=== PATIENT | female | born 1990 ===

== ENCOUNTER 2020-07-02 12:02 | Outpatient (REF) | payer MEDICAID, SELFPAY | END 2020-07-02 12:03 | disposition home or self-care (01) | LOC: HO.LAB 12:02 | PROVIDERS: Visit Provider Internal Medicine | DX: Z20.828 Contact with and (suspected) exposure to other viral communicable diseases (principal) | CPT/HCPCS: C9803; U0003 ==

== ENCOUNTER 2020-11-26 12:04 | Outpatient (REF) | payer MEDICAID, SELFPAY ==
[2020-11-26 12:47] LABS: COVID-19 Test Negative (Negative); IDNOW Serial# 55D5AD1C
== END 2020-11-26 12:05 | disposition home or self-care (01) ==
LOC: HO.LAB 12:04
PROVIDERS: Visit Provider Internal Medicine
DX: Z20.822 Contact with and (suspected) exposure to COVID-19 (principal)
CPT/HCPCS: 36415; 87635; C9803

== ENCOUNTER 2023-05-09 08:50 | Emergency (ER) | payer MEDICAID, SELFPAY ==
[2023-05-09 09:01] VITALS: BP 116/83; PULSE 70; RESP 16; TEMP 36.1; O2SAT 98; BMI 31.1
[2023-05-09 09:30] LABS: MANUAL DIFF FLAG NO
[2023-05-09 09:32] LABS: Basophils Absolute Auto 0.1 X10*3/uL (0.0-0.2); Basophils Percent Auto 0.6 % (0-2); Eosinophils Absolute Auto 0.1 X10*3/uL (0.0-0.4); Eosinophils Percent Auto 1.2 % (0-4); Hematocrit 42.4 % (37.0-47.0); Hemoglobin 14.5 g/dl (12.0-16.0); Imm Gran Abs Auto 0.07 X10*3/uL (0.00-0.03); Imm Gran Pct Auto 0.7 % (0.0-0.4); Lymphocytes Absolute Auto 3.3 X10*3/uL (1.2-4.9); Lymphocytes Percent Auto 33.7 % (20-40); Mean Corpuscular HGB Conc 34.2 g/dl (31.0-35.0); Mean Corpuscular Hemoglobin 30.7 pg (27.0-33.0); Mean Corpuscular Volume 89.6 fL (80.0-98.0); Mean Platelet Volume 8.8 fL (9.4-12.3); Monocytes Absolute Auto 0.6 X10*3/uL (0.1-1.2); Monocytes Percent Auto 5.9 % (2-11); Neutrophils Absolute Auto 5.6 x10*3/uL (2.0-8.3); Neutrophils Percent Auto 57.9 % (45-73); Platelet Count 353 X10*3/uL (160-400); Red Blood Count 4.73 X10*6/uL (4.20-5.50); Red Cell Distribution Width 12.1 % (11.0-16.0); White Blood Count 9.7 X10*3/uL (4.8-10.8)
[2023-05-09 09:35] LABS: Appearance Urine Clear; Color Urine Yellow; Glucose Urine UA Negative (Negative); Leukocyte Esterase Urine Negative (Negative); Nitrite Urine Negative (Negative); PH 5.5 (5.0-9.0); Specific Gravity - Urine <= 1.005 (1.005-1.025); UMIC TRIGGER UACC YES; Urine Blood Trace (Negative); Urine Ketones Negative (Negative); Urine Protein Negative (Neg-Trace)
[2023-05-09 09:37] LABS: Bacteria Urine None Seen (None Seen); Hyaline Casts Urine 0-2 /LPF (0-2); RBC Urine 0-2 /HPF (0-2); Squamous Epithelial Cell Urine 0-2 /HPF (0-2); WBC Urine 0-5 /HPF (0-5)
[2023-05-09 09:38] LABS: UPreg QC Valid YES; Urine Pregnancy NEGATIVE (NEGATIVE)
[2023-05-09 09:57] LABS: Anion Gap 14 (12-20); Blood Urea Nitrogen 16 mg/dL (9-16); Calcium 9.5 mg/dL (8.4-10.2); Carbon Dioxide 20 mmol/L (22-29); Chloride 108 mmol/L (96-108); Creatinine Clr Calc Pharmacy 104.9; Estimated Glomerular Filt Rate > 60; Glucose Random 90 mg/dL (60-115); Potassium 4.1 mmol/L (3.3-5.1); Sodium 138 mmol/L (135-145)
[2023-05-09 13:44] VITALS: BP 138/77; PULSE 88; RESP 18; TEMP 36.3; O2SAT 97
--- NOTE | 2023-05-09 13:44 | ED_ITS ---
HPI - General Adult General Chief complaint: Nausea/Vomiting/Diarrhea Stated complaint: heartburn vomiting diarrhea abd pain Time Seen by Provider: 05/09/23 13:45 Source: patient Mode of arrival: ambulatory Limitations: no limitations History of Present Illness HPI narrative: Patient is a 32 year old assigned female at with no reported medical history presenting to the emergency department today with nausea, vomiting, and acid reflux. Patient states that over the last few months they have intermittent nausea, vomiting, and acid reflux. Patient denies any dizziness, lightheadedness, abdominal pain, fever, chills, blurry vision, double vision, loss of vision, chest pain, difficulty breathing, shortness of breath, back pain, night sweats, pain with urination, increased urinary frequency, increased urinary urgency, blood in her urine or stool, syncope or a near syncopal episode, recent trauma or falls, bowel incontinence, bladder incontinence, bowel retention, bladder retention, or any other complaints at this time. Onset (ago): month(s) Severity: mild Severity scale (1-10): 3 Pain Consistency: constant Relieving factors: none Exacerbating factors: none Associated symptoms: nausea/vomiting Treatments prior to arrival: none Related Data Previous Rx's Medication Instructions Recorded omeprazole 40 mg capsule,delayed 40 mg PO DAILY #30 caps 05/09/23 release ondansetron 4 mg disintegrating 4 mg PO Q8H 3 days #9 tabs 05/09/23 tablet Allergies Allergy/AdvReac Type Severity Reaction Status Date / Time doxycycline AdvReac Vomiting Verified 05/09/23 09:01 Sulfa (Sulfonamide AdvReac Diarrhea Verified 05/09/23 09:01 Antibiotics) Review of Systems 2 Constitutional: Constitutional: Reports no additional constitutional complaints, Denies chills, Denies fever(s) and Denies night sweats Eyes: Eyes: Reports no additional eye complaints, Denies blurry vision, Denies change in vision, Denies diplopia, Denies eye discharge, Denies loss of vision and Denies eye pain ENT: Denies dizziness Cardiovascular: Cardiovascular: Reports no additional cardiovascular complaints, Denies chest pain, Denies lightheadedness, Denies Loss of Consciousness and Denies dyspnea Respiratory: Respiratory: Reports no additional respiratory complaints and Denies dyspnea Gastrointestinal: Gastrointestinal: Reports no additional gastrointestinal complaints, Denies abdominal pain, Denies melena, Denies hematochezia, Denies change in bowel habits, Denies change in stool character, Reports nausea and Reports vomiting Genitourinary: Genitourinary: Denies hematuria, Denies urinary frequency, Denies dysuria, Denies urinary incontinence, Denies urinary hesitancy and Denies urinary urgency Musculoskeletal: Musculoskeletal: Reports no additional musculoskeletal complaints, Denies numbness and Denies tingling Neurologic: Denies dizziness, Denies loss of vision, Denies numbness and Denies tingling Psychiatric: Psychiatric: Reports no additional psychiatric complaints Endocrine: Endocrine: Reports no additional endocrine complaints Hematologic/Lymphatic: Hematologic/Lymphatic: Reports no additional hematologic/lymphatic complaints Allergic/Immunologic: Allergic/Immunologic: Reports no additional allergic/immunologic complaints [facility] Past Medical History Attestation statement: The following information was validated with the patient. Source: old records reviewed and nursing notes reviewed Physical Exam ED Vital Signs: Vital Signs - 24 hr 05/09/23 09:01 05/09/23 13:44 Temperature 97 F 97.4 F Pulse Rate 70 88 Respiratory Rate 16 18 Blood Pressure 116/83 138/77 Pulse Oximetry 98 97 Oxygen Delivery Method Room Air Room Air BMI result Body Mass Index 31.1 Const General: cooperative, no acute distress, alert and awake Nutritional Appearance: well nourished Orientation/consciousness: patient oriented x3 Limitations: no limitations HENMD Head: Yes normal to inspection and Yes atraumatic Ears: hearing grossly normal bilaterally and external ears normal General nose exam: Normal external nose present, no nasal discharge noted and no epistaxis Face and sinus: Yes normal facial exam, No abrasion and No laceration Mouth: Normal oral and palatal mucosa present, no drooling and no muffled voice Eyes General: appearance normal, both eyes and all related structures Periorbital: periorbital findings normal Eyelids: Yes eyelids normal Conjunctivae: conjunctivae normal Pupils: Equal, round and reactive pupils present EOM: EOMs intact bilaterally Neck Neck: Yes normal visual inspection, Yes full ROM and Yes no lymphadenopathy Chest Chest palpation & inspection: normal inspection of the chest Resp Effort & Inspection: normal respiratory effort and able to speak in complete sentences Auscultation: clear to auscultation bilaterally Cardio Rate: regular rate Rhythm: regular rhythm GI Inspection: Yes normal to inspection Palpation (GI): Soft to palpation, not firm, nontender and no guarding Neuro General: patient oriented x3 and moves all extremities Cranial nerves: Yes Equal, round and reactive pupils present Cognition (Neuro): normal cognition Motor exam (neuro): 5/5 motor strength present throughout Sensory Exam: Normal double simultaneous stimulation for sensation Coordination: [id number] test normal Extrem General: Yes normal to inspection, Yes full ROM and Yes capillary refill normal Psych Appearance: grossly normal Mental Status: mental status grossly normal Affect: normal affect Attitude: cooperative Thought process: Normal thought process present Thought content: Normal thought content present Insight: Good insight present (Psych) Course Course Course Narrative: RME performed by Kiley Maya PA-C. Patient is a 32 year old assigned female at presenting to the emergency department with vomiting and diarrhea. Labs and swabs ordered. Patient placed back in the waiting room pending room availability and results. Medical Decision Making Medical Decision Making [facility] Narrative: Patient is a 32 year old assigned female at with no reported medical history presenting to the emergency department today with nausea, vomiting, and heartburn for a few months. Patient's physical exam was unremarkable. Patient's blood work was unremarkable. Patient's urine showed no acute process. I explained my physical exam findings as well as all test results to the patient. I answered all questions asked by the patient. I stressed the importance of the patient taking her medication as prescribed. I stressed the importance of the patient following up with her primary care provider and a GI specialist. I stressed the importance of the patient returning to the emergency department immediately if her symptoms were to worsen or if she were to develop any dizziness, shortness of breath, difficulty breathing, chest pain, blurry vision, loss of vision, nausea, vomiting, abdominal pain, fever, chills, back pain, or any other complaints. Patient verbalized agreement and understanding with this treatment plan and discharge. Differential Diagnosis Differential Diagnoses: The differential diagnosis associated with the presentation includes GERD Nausea Vomiting Admission/Observation Consideration of admission/observation: Escalation of care including admission/observation considered Patient would have been admitted to the hospital had her work up had any findings where hospital admission was appropriate and her clinical presentation warranted hospital admission. Lab Data [facility] Lab Attestation statement: I reviewed the patient's lab results. My interpretation of these studies and their corresponding values is that they are grossly normal. 05/09/23 09:22 05/09/23 09:22 Labs: Lab Results 05/09/23 Range/Units 09:22 WBC 9.7 (4.8-10.8) X10*3/uL RBC 4.73 (4.20-5.50) X10*6/uL Hgb 14.5 (12.0-16.0) g/dl Hct 42.4 (37.0-47.0) % MCV 89.6 (80.0-98.0) fL MCH 30.7 (27.0-33.0) pg MCHC 34.2 (31.0-35.0) g/dl RDW 12.1 (11.0-16.0) % Plt Count 353 (160-400) X10*3/uL MPV 8.8 L (9.4-12.3) fL Immature Gran % (Auto) 0.7 H (0.0-0.4) % Neut % (Auto) 57.9 (45-73) % Lymph % (Auto) 33.7 (20-40) % [place] % (Auto) 5.9 (2-11) % Eos % (Auto) 1.2 (0-4) % Baso % (Auto) 0.6 (0-2) % Lymph # (Auto) 3.3 (1.2-4.9) X10*3/uL [place] # (Auto) 0.6 (0.1-1.2) X10*3/uL Eos # (Auto) 0.1 (0.0-0.4) X10*3/uL Baso # (Auto) 0.1 (0.0-0.2) X10*3/uL Abs Immat Gran (auto) 0.07 H (0.00-0.03) X10*3/uL Absolute Neuts (auto) 5.6 (2.0-8.3) x10*3/uL Absolute Nucleated RBC 0.000 (0.0-0.012) X10*3/uL Nucleated RBC % (auto) 0.0 (0.0-0.2) /100WBC Sodium 138 (135-145) mmol/L Potassium 4.1 (3.3-5.1) mmol/L Chloride 108 (96-108) mmol/L Carbon Dioxide 20 L (22-29) mmol/L Anion Gap 14 (12-20) BUN 16 (9-16) mg/dL Creatinine 0.74 (0.5-1.4) mg/dL Estim Creat Clear Calc 104.9 Estimated GFR > 60 Random Glucose 90 (60-115) mg/dL Calcium 9.5 (8.4-10.2) mg/dL Urine Color Yellow Urine Appearance Clear Urine pH 5.5 (5.0-9.0) Ur Specific [place] <= 1.005 (1.005-1.025) Urine Protein Negative (Neg-Trace) mg/dL Urine Glucose (UA) Negative (Negative) mg/dL Urine Ketones Negative (Negative) mg/dL Urine Blood Trace H (Negative) Urine Nitrite Negative (Negative) Ur Leukocyte Esterase Negative (Negative) Urine RBC 0-2 (0-2) /HPF Urine WBC 0-5 (0-5) /HPF Ur Squamous Epith Cells 0-2 (0-2) /HPF Urine Bacteria None Seen (None Seen) Hyaline Casts 0-2 (0-2) /LPF Urine Test NEGATIVE (NEGATIVE) Discharge Plan Discharge Clinical Impression: Nausea & vomiting Patient Disposition: Home, Self-Care Instructions: Acute Nausea and Vomiting (ED) Additional Instructions: Follow up with your primary care provider and a GI specialist. Return to the emergency department immediately if your symptoms worsen or if you develop any dizziness, shortness of breath, difficulty breathing, chest pain, blurry vision, loss of vision, nausea, vomiting, abdominal pain, fever, chills, back pain, or any other complaints. Prescriptions: New ondansetron 4 mg tablet,disintegrating 4 mg PO Q8H 3 Days Qty: 9 0RF omeprazole 40 mg capsule,delayed release(DR/EC) 40 mg PO DAILY Qty: 30 0RF Referrals: [facility] [Provider Group] (Call to establish and follow up with a GI specialist. ) Caryn Wang NP [Primary Care Provider] - Stand Alone Forms: Work/School Release Print Language: Latvian
== END 2023-05-09 13:52 | disposition home or self-care (01) ==
PROVIDERS: Emergency Provider Emergency Medicine; PCP Nurse Practitioner Family
DX: R11.2 Nausea with vomiting, unspecified (principal); R19.7 Diarrhea, unspecified; Z79.899 Other long term (current) drug therapy
CPT/HCPCS: 36415; 80048; 81001; 81025; 85025; 99282; 99283

== ENCOUNTER 2023-08-21 10:07 | Emergency (ER) | payer MEDICAID, SELFPAY ==
--- NOTE | ~2023-08-21 | XR_ITS ---
EXAMINATION: XR WRIST, RIGHT XR HAND, RIGHT CLINICAL INFORMATION: CAT by COMPARISON: None available. TECHNIQUE: PA, lateral, and oblique views of the right wrist and PA, lateral, and oblique views of the right hand FINDINGS: RIGHT WRIST: The bones and soft tissues are normal. No fracture. Alignment is anatomic. Joint spaces are maintained. No erosions or soft tissue calcifications. RIGHT HAND: The bones and soft tissues are normal. No fracture. Alignment is anatomic. Joint spaces are maintained. No erosions or soft tissue calcifications. XR/XR hand wrist RT IMPRESSION: Normal right hand and wrist.
--- NOTE | ~2023-08-21 | XR_ITS ---
EXAMINATION: XR WRIST, LEFT XR HAND, LEFT CLINICAL INFORMATION: CAT bite COMPARISON: None available. TECHNIQUE: PA, lateral, and oblique views of the left wrist and PA, lateral, and oblique views of the left hand FINDINGS: LEFT WRIST: Small cyst in the scaphoid bone. The bones and soft tissues are otherwise normal. No fracture. Alignment is anatomic. Joint spaces are maintained. No erosions or soft tissue calcifications. LEFT HAND: The bones and soft tissues are normal. No fracture. Alignment is anatomic. Joint spaces are maintained. No erosions or soft tissue calcifications. XR/XR hand wrist LT IMPRESSION: Small cyst in the scaphoid bone otherwise normal left hand and wrist.
[2023-08-21 10:15] VITALS: BP 138/79; PULSE 90; RESP 18; TEMP 35.9; O2SAT 97; BMI 33.0
--- NOTE | 2023-08-21 10:23 | ED_ITS ---
HPI - Animal Bite General Chief Complaint: Animal Bite Stated Complaint: Animal bite Time Seen by Provider: 08/21/23 10:23 Source: patient and family (significant other) Mode of arrival: ambulatory Limitations: no limitations History of Present Illness HPI narrative: 32 year old female with no significant pmhx here for evaluation of right thumb pain s/p cat bite occurring 2 days ago around 1900. Admits to picking up her friends cat to move him off of the couch, when the cat bit both her right and left thumbs before dropping the cat. Reports washing the puncture wounds out immediately with water and chlorahexadine. Endorses increasing pain/ swelling to right thumb over the last two days. Denies any discharge/ bleeding from the wounds. Pain does not radiate to right wrist, forearm or elbow. She states that the cat is up to date on all vaccinations. Tetanus not UTD. Denies fever, chills, headache, dizziness, N/V, rashes, numbness/tingling/weakness of the UEs. Related Data Previous Rx's Medication Instructions Recorded omeprazole 40 mg capsule,delayed 40 mg PO DAILY #30 caps 05/09/23 release ondansetron 4 mg disintegrating 4 mg PO Q8H 3 days #9 tabs 05/09/23 tablet amoxicillin 875 mg-potassium 1 tab PO BID 14 days #28 tabs 08/21/23 clavulanate 125 mg tablet Allergies Allergy/AdvReac Type Severity Reaction Status Date / Time doxycycline AdvReac Vomiting Verified 05/09/23 09:01 Sulfa (Sulfonamide AdvReac Diarrhea Verified 05/09/23 09:01 Antibiotics) Review of Systems 2 Review of Systems: Constitutional: No fever, chills, fatigue, night sweats, weight changes ENT/Mouth: No ear pain, hearing loss, nasal congestion, sinus pain, rhinorrhea, sore throat Eyes: No eye pain, swelling, redness, vision changes, discharge Cardio: No chest pain, palpitations, JIMENEZ, orthopnea, peripheral edema Pulm: No SOB, cough, sputum, wheezing, dyspnea, hemoptysis GI: No nausea, vomiting, hematemesis, abdominal pain, diarrhea, constipation, hematochezia, melena : No irregular bleeding, dysuria, frequency, urgency, hesitancy, hematuria, flank pain, urinary flow changes, urinary incontinence or retention MSK: No back pain, neck pain, joint pain, myalgias Skin: No lesions, rashes, +cat bite Neuro: No weakness, numbness, paresthesias, LOC, dizziness, headache All other systems reviewed and are negative. [facility] Past Medical History Attestation statement: The following information was validated with the patient. Source: old records reviewed and nursing notes reviewed Social History Social History Alcohol intake: current Alcohol intake frequency: a few times a week Smoked in Last 30 Days: Yes Use of substances other than those prescribed or required for medical reasons: Yes Substance Use Type: Marijuana Substance Use Frequency: Occasionally Last Used Substance: Days (ago) Advance Directives: No Advance Directives Information Provided: No Physical Exam ED Vital Signs: Vital Signs - 24 hr 08/21/23 10:15 Temperature 96.7 F L Pulse Rate 90 Respiratory Rate 18 Blood Pressure 138/79 Pulse Oximetry 97 Oxygen Delivery Method Room Air BMI result Body Mass Index 33.0 Vital signs stable, afebrile Const General: cooperative, healthy appearing, comfortable and no acute distress Orientation/consciousness: patient oriented x3 Limitations: no limitations Eyes General: appearance normal, both eyes and all related structures Conjunctivae: conjunctivae normal Sclerae: sclerae normal Pupils: Equal, round and reactive pupils present Neck Neck: Yes normal visual inspection Resp Effort & Inspection: normal respiratory effort Auscultation: clear to auscultation bilaterally Cardio Other: + 2+ radial and ulnar pulses b/l Rate: regular rate Rhythm: regular rhythm GI Inspection: Yes normal to inspection Skin Other: + refer to photos below Neuro Other: + NV intact distally. finger to thumb and language translator strength intact b/l. sensation intact throughout. General: patient oriented x3 and gait normal Cranial nerves: Yes Equal, round and reactive pupils present Extrem Other: + refer to photos below + 2 puncture wounds noted to ulnar aspect of right 1st digit. no discharge. no streaking or pointing. TTP. full rom intact to right wrist. full ROM to all MCPs of right hand. limited ROM to 1st PIP and DIP d/t pain/ swelling. cap refill <2 seconds. no pitting edema. + 4 puncture wounds noted to left hand, 1 puncture distal to the first mcp dorsally, 1 puncture inferior to 2nd mcp dorsally, 1 puncture to palmar aspect of 1st digit inferior to DIP, and 1 to radial aspect of 2nd digit in line with mcp. no discharge. no streaking or pointing. TTP. full rom intact to left wrist. full ROM to all MCPs/ DIPs/ PIPs of left hand. cap refill <2 seconds. no pitting edema. Course Course Course Narrative: 1223-- patient has been soaking puncture wounds in iodine/saline mixture intermittently for approximately 1 hour. She reports improvement in pain/discomfort after this soak. Can now move her right thumb with less pain. X- rays are normal normal and do not demonstrate cellulitic process, evidence of osteo, fracture or FB. CBC without leukocytosis. No left shift. Chemistry shows elevated CRP likely secondary to cat bite/inflammation. Chemistry without acute electrolyte abnormality requiring intervention. No concern for progressing infection, lymphangitis, septic joint. Will send p.o. Augmentin to patient's pharmacy x14 days. Tetanus has been updated. As animal is UTD on vacciations, will not administer rabies ppx todya. Discussed all workup results, treatment and disposition with patient. All questions answered. Discussed worrisome signs and symptoms and when to return to the ED. she has remained stable throughout her stay today. Patient agreeable disposition and stable for discharge. Medications Administered Discontinued Medications Generic Name Dose Route Start Last Admin Trade Name Freq PRN Reason Stop Dose Admin Diphtheria/Tetanus/Acell Pertussis 0.5 ml 08/21/23 10:49 08/21/23 10:53 Diphth,Pertus(Acell),Tet Adult 0.5 Ml Syringe IM 08/21/23 10:50 0.5 ml .ONCE ONE Administration Medical Decision Making Medical Decision Making [facility] Narrative: 32 year old female with no significant pmhx here for evaluation of right thumb pain s/p cat bite occurring 2 days ago around 1900. Vital signs stable. Patient is nontoxic-appearing and in NAD. On exam, there are 2 puncture wounds noted to ulnar aspect of right 1st digit. 4 puncture wounds noted to left hand, 1 puncture distal to the first mcp dorsally, 1 puncture inferior to 2nd mcp dorsally, 1 puncture to palmar aspect of 1st digit inferior to DIP, and 1 to radial aspect of 2nd digit in line with mcp. no discharge. no streaking or pointing. TTP. full rom intact to right wrist. full ROM to all MCPs of right hand. limited ROM to 1st PIP and DIP d/t pain/ swelling. cap refill <2 seconds. no pitting edema. Clinical concern for animal bite. Unlikely lymphangitis, septic arthritis, sepsis, rabies, tetanus. Plan for basic labs to determine baseline, wound washout, tetanus vaccine, and treatment with antibiotics. Differential Diagnosis Differential Diagnoses: The differential diagnosis associated with the presentation includes As above. Admission/Observation Not indicated. Lab Data [facility] Lab Attestation statement: I reviewed the patient's lab results. as above. 08/21/23 10:44 08/21/23 10:44 Labs: Lab Results 08/21/23 Range/Units 10:44 WBC 7.7 (4.8-10.8) X10*3/uL RBC 4.46 (4.20-5.50) X10*6/uL Hgb 13.4 (12.0-16.0) g/dl Hct 39.7 (37.0-47.0) % MCV 89.0 (80.0-98.0) fL MCH 30.0 (27.0-33.0) pg MCHC 33.8 (31.0-35.0) g/dl RDW 12.5 (11.0-16.0) % Plt Count 326 (160-400) X10*3/uL MPV 9.1 L (9.4-12.3) fL Immature Gran % (Auto) 0.3 (0.0-0.4) % Neut % (Auto) 62.1 (45-73) % Lymph % (Auto) 28.8 (20-40) % [place] % (Auto) 6.8 (2-11) % Eos % (Auto) 1.6 (0-4) % Baso % (Auto) 0.4 (0-2) % Lymph # (Auto) 2.2 (1.2-4.9) X10*3/uL [place] # (Auto) 0.5 (0.1-1.2) X10*3/uL Eos # (Auto) 0.1 (0.0-0.4) X10*3/uL Baso # (Auto) 0.0 (0.0-0.2) X10*3/uL Abs Immat Gran (auto) 0.02 (0.00-0.03) X10*3/uL Absolute Neuts (auto) 4.8 (2.0-8.3) x10*3/uL Absolute Nucleated RBC 0.000 (0.0-0.012) X10*3/uL Nucleated RBC % (auto) 0.0 (0.0-0.2) /100WBC ESR 3 (0-20) MM/HR Sodium 137 (135-145) mmol/L Potassium 4.2 (3.3-5.1) mmol/L Chloride 109 H (96-108) mmol/L Carbon Dioxide 18 L (22-29) mmol/L Anion Gap 14 (12-20) BUN 13 (9-16) mg/dL Creatinine 0.73 (0.5-1.4) mg/dL Estim Creat Clear Calc 113.8 Estimated GFR > 60 Random Glucose 100 (60-115) mg/dL Calcium 8.6 D (8.4-10.2) mg/dL C-Reactive Protein 4.54 H (< or = 0.50) mg/dL Independent Interpretation I performed an independent interpretation of an: Plain X-Ray Interpretation: I have personally reveiwed xr right & left hands/wrists and agree with radiologist's interpretation. Radiology Impression Discussion of test interpretation with radiology: I have reviewed the radiologist's reading. Radiologist Impression: XR hand wrist RT IMPRESSION: Normal right hand and wrist. XR hand wrist LT IMPRESSION: Small cyst in the scaphoid bone otherwise normal left hand and wrist. Independent Historian Clinical information obtained from an independent historian. History obtained from or confirmed by: Spouse External Record Review External record reviewed: Inpatient record, Office record and Outpatient record Prescription Management I considered prescription management with: Pain Medication and Antibiotic Social Determinants Patient?s care significantly limited by Social Determinants of Health including: Other Social Determinant of Health Discharge Plan Discharge Clinical Impression: Cat bite Patient Disposition: Home, Self-Care Instructions: Diphtheria/Tetanus Vaccine (By injection), Animal Bite (ED), Rabies (ED), Tetanus (ED) Additional Instructions: You were evaluated in the emergency department today for evaluation of cat bite. Your labs are reassuring. The x-rays of both of your hands/wrists are normal. Your tetanus vaccination was updated today and will remain up to date over the next 5-10 years depending on the situation. You state that the cat is up-to-date on vaccinations and therefore did not receive rabies vaccine today. Augmentin as antibiotic that has been sent to your pharmacy. Take this as prescribed over the next 14 days. Do not skip any doses or stop taking these early as this may cause infection to return or worsen. On Augmentin, softer bowel movements are to be expected. Call your provider if you move your bowels more than 4 times a day, your bowel movements are almost all liquid, or you get a rash.? You may take Tylenol and ibuprofen as needed for pain. As discussed, if the redness begins tracking up your arm, you spike a fever, swelling worsens, you began having difficulty moving fingers or wrist please return to the emergency department as you may require IV antibiotics. Please follow-up with your primary care provider as needed. If symptoms persist or worsen please return to the ED. Case of emergency call 911. Prescriptions: New amoxicillin-pot clavulanate 875-125 mg tablet 1 tab PO BID 14 Days Qty: 28 0RF No Action ondansetron 4 mg tablet,disintegrating 4 mg PO Q8H 3 Days Qty: 9 0RF omeprazole 40 mg capsule,delayed release(DR/EC) 40 mg PO DAILY Qty: 30 0RF Referrals: Caryn Wang [facility] [Primary Care Provider] - Stand Alone Forms: Work/School Release Interventions: ED Discharge Assessment Last Done: 08/21/23 12:34 Discharge Date/Time: 08/21/23 12:35
[2023-08-21 10:49] LABS: MANUAL DIFF FLAG NO
[2023-08-21] MEDS: Diphth,Pertus(ACell),Tet Adult 0.5 ML SYRINGE IM (10:53)
[2023-08-21 11:05] LABS: Basophils Percent Auto 0.4 % (0-2); Eosinophils Absolute Auto 0.1 X10*3/uL (0.0-0.4); Eosinophils Percent Auto 1.6 % (0-4); Hematocrit 39.7 % (37.0-47.0); Hemoglobin 13.4 g/dl (12.0-16.0); Imm Gran Abs Auto 0.02 X10*3/uL (0.00-0.03); Imm Gran Pct Auto 0.3 % (0.0-0.4); Lymphocytes Absolute Auto 2.2 X10*3/uL (1.2-4.9); Lymphocytes Percent Auto 28.8 % (20-40); Mean Corpuscular HGB Conc 33.8 g/dl (31.0-35.0); Mean Platelet Volume 9.1 fL (9.4-12.3); Monocytes Absolute Auto 0.5 X10*3/uL (0.1-1.2); Monocytes Percent Auto 6.8 % (2-11); Neutrophils Absolute Auto 4.8 x10*3/uL (2.0-8.3); Neutrophils Percent Auto 62.1 % (45-73); Platelet Count 326 X10*3/uL (160-400); Red Blood Count 4.46 X10*6/uL (4.20-5.50); Red Cell Distribution Width 12.5 % (11.0-16.0); White Blood Count 7.7 X10*3/uL (4.8-10.8)
[2023-08-21 11:07] LABS: Anion Gap 14 (12-20); Blood Urea Nitrogen 13 mg/dL (9-16); C Reactive Protein 4.54 mg/dL (< or = 0.50); Calcium 8.6 mg/dL (8.4-10.2); Carbon Dioxide 18 mmol/L (22-29); Chloride 109 mmol/L (96-108); Creatinine Clr Calc Pharmacy 113.8; Estimated Glomerular Filt Rate > 60; Glucose Random 100 mg/dL (60-115); Potassium 4.2 mmol/L (3.3-5.1); Sodium 137 mmol/L (135-145)
[2023-08-21 11:40] LABS: Erythrocyte Sedimentation Rate 3 MM/HR (0-20)
== END 2023-08-21 12:35 | disposition home or self-care (01) ==
PROVIDERS: Physician Assistant Medical; Emergency Provider Student in an Organized Health Care Education/Training Program; PCP Nurse Practitioner Family
DX: S61.051A Open bite of right thumb without damage to nail, initial encounter (principal); S61.052A Open bite of left thumb without damage to nail, initial encounter; W55.01XA Bitten by cat, initial encounter; Y93.9 Activity, unspecified; Y92.008 Other place in unspecified non-institutional (private) residence as the place of occurrence of the external cause; Y99.9 Unspecified external cause status; Z23 Encounter for immunization
CPT/HCPCS: 36415; 73110; 73130; 80048; 85025; 85652; 86140; 90471; 90715; 99283; 99284